=== PATIENT | male | born 1960 | race Caucasian/White ===

== ENCOUNTER 2023-07-07 03:03 | Emergency (ER) | payer OTHER, SELFPAY ==
[2023-07-07] VITALS (41 sets, daily range): BP systolic 108–184; BP diastolic 84–131; PULSE 0–121; RESP 0–39; O2SAT 95–100
--- NOTE | 2023-07-07 03:19 | CT_ITS ---
The [address] [address] Patient Name: SINA APONTE MRN: [id number] date: 1960 Sex: M Assigned Patient Location: ED.MAIN Current Patient Location: Accession/Order Number: [id number] Exam Date: 07/07/2023 05:00 Report Date: 07/07/2023 05:49 At the request of: SAIRA MARKER Procedure: CT head/brain wo con EXAM: CT head/brain wo con HISTORY: AMS COMPARISON: None. TECHNIQUE: Noncontrast axial CT images through the head were obtained with coronal and sagittal reformats. Dose reduction techniques were achieved by using automated exposure control and/or adjustment of mA and/or kV according to patient size and/or use of iterative reconstruction technique. FINDINGS: The cerebral sulci and ventricles are normal in size and shape. There is mild decreased attenuation within the periventricular white matter suggestive of chronic microvascular ischemic changes. There is no evidence of intracranial hemorrhage, mass, or midline shift. No extra-axial fluid collection is seen. The brainstem and cerebellum are normal in appearance. There is mucosal thickening and frothy secretions in the right maxillary sinus. Otherwise, the visualized paranasal sinuses and mastoid air cells are clear. No skull abnormalities are identified. CT/CT head/brain wo con IMPRESSION: 1. No acute intracranial abnormality. 2. Right maxillary sinus disease. Please correlate for acute sinusitis. Electronically authenticated by: Ru HOLBROOK Date: 07/07/2023 05:49
[2023-07-07 03:29] LABS: PO2 ABG 90.1 mmHg (80.0-100.0)
[2023-07-07 03:30] LABS: Allen Test POSITIVE (POSITIVE); Base Excess ABG -10.1 mmol/L (-2.0-2.0); Fractionated Inspired Oxygen 100 %; HCO3 ABG 20.9 mmol/L (22.0-26.0); O2 Mode VENTILATOR; Oxygen Saturation ABG 92.3 %; Puncture Site LR; Vent Mode AC
[2023-07-07 03:31] LABS: Rate 18; Tidal Volume 500
[2023-07-07 03:32] LABS: pH ABG 7.016 (7.350-7.450)
[2023-07-07 03:33] LABS: ABG PCO2 81.5 mmHg (35.0-45.0)
[2023-07-07 03:50] LABS: Alanine Aminotransferase 381 U/L (16-63); Albumin Level 2.1 g/dL (3.4-5.0); Alkaline Phosphatase 70 U/L (46-116); Anion Gap 12.2; Aspartate Amino Transferase 368 U/L (15-37); BUN Creatinine Ratio 9.8; Bilirubin Total 0.1 mg/dL (0.2-1.0); Calcium 7.6 mg/dL (8.5-10.1); Carbon Dioxide 26.5 mmol/L (21.0-32.0); Chloride 112 mmol/L (98-107); Estimated GFR (African America 56 (>=60); Estimated GFR (Non-African Ame 46 (>=60); Globulin 2.2 g/dL; Glucose 366 mg/dL (74-106); Potassium 3.7 mmol/L (3.5-5.1); Sodium 147 mmol/L (136-145); Total Protein 4.3 g/dL (6.4-8.2)
[2023-07-07] MEDS: IPRATROPIUM/ALBUTEROL SULFATE 3 ML AMPUL.NEB IH (03:50)
[2023-07-07 03:52] LABS: Troponin I High Sensitivity 66.5 pg/mL (4.0-76.1)
[2023-07-07 03:53] LABS: Hemoglobin 14.5 g/dL (14.0-18.0); Mean Corpuscular HGB Conc 30.9 g/dL (29.9-35.2); Mean Corpuscular Hemoglobin 30.8 pg (25.9-34.0); Mean Corpuscular Volume 99.8 fL (80.0-94.0); Mean Platelet Volume 10.8 fL (9.5-13.5); Platelet Count 117 10^3/uL (150-450); Red Blood Count 4.71 10^6/uL (4.70-6.10); Red Cell Distribution Width 12.9 % (11.0-15.0); White Blood Count 7.2 10^3/uL (4.0-11.0)
[2023-07-07] MEDS: AMIODARONE IN DEXTROSE,ISO-OSM 360 MG/200 ML PLAST..BAG 33.333 MG IV (04:02)
[2023-07-07] MEDS: NOREPINEPHRINE BITARTRATE 4 MG in DEXTROSE 5 % IN WATER 250 ML 15.24 MG IV (04:02)
--- NOTE | 2023-07-07 04:30 | ED_ITS ---
HPI - General Adult General Chief complaint: Cardiac Arrest/CPR Stated complaint: UNRESPONSIVE Time Seen by Provider: 07/07/23 03:18 Source: EMR Mode of arrival: ambulance Limitations: physical limitation Limitations comment: Patient unresponsive History of Present Illness HPI narrative: This 62-year-old male with a history of diabetes and tobacco use is brought to the emergency department by EMS upon notification for a full arrest. The patient was at work on the line at [employer] when he became unresponsive. CPR was initiated at [employer] and he had CPR and 3 shocks delivered by an AED prior to EMS arrival. Upon EMS arrival the patient was intubated but still had agonal respirations. He was given IV epinephrine ?4, amoidarone, sodium bicarb and was defibrillated 3 times. Despite their efforts cording to EMS he remained in ventricular tachycardia or ventricular fibrillation. An intraosseous line had been established by EMS. The downtime was over an hour before arriving to the E D. Arrival he was intubated and unresponsive without a pulse. CPR was in progress. His rhythm on the monitor showed ventricular tachycardia or ventricular fibrillation and he was shocked twice and given additional IV epinephrine and IV sodium bicarbonate. He was also given IV magnesium, IV calcium, IV fluids and started on an amiodarone and levofed drip. He maintained his pulse on these medications for over an hour. EKG done once a pulse was established is a wide complex at 102 bpm. An OGT was placed by the nursing staff and a large amount of dark blood was suctioned from his stomach, Additional history was obtained from the patient's domestic partner who states that he smokes 1.5-2 packs of cigarettes/day. He does not take aspirin or NSAIDS and he does not drink alcohol. He is a former drinker but has not been drinking for the past 15 years. Related Data Allergies Allergy/AdvReac Type Severity Reaction Status Date / Time No Known Drug Allergies Allergy Verified 07/07/23 03:28 Review of Systems ROS Status of ROS unobtainable due to medical condition Exam Narrative Exam Narrative: General: Thin, unresponsive adult male, intubated, CPR in progress Skin: Warm, dry, no pallor noted. There is no rash noted. Head: Normocephalic, atraumatic Eye:Pupils are 3-4 mm and eyes are deviated to the right, no corneal reflex appreciated Ears, Nose, Mouth, and Throat: ETT in oral cavity Cardiovascular: Initially pulseless with rhythm of V tach/V Fib and PEA. Once pulse established, it was brisk Respiratory: Patient is breathing above the vent. Lungs have coarse breath sounds and expiratory wheezing Back: non-tender, no CVA tenderness bilaterally to percussion. GI: Normal bowel sounds, no tenderness to palpation, no masses appreciated. No rebound, guarding, or rigidity noted. Musculoskeletal: The patient has no evidence of calf tenderness, no pitting edema, symmetrical pulses noted bilaterally Neurological: Unresponsive GCS 3T Constitutional Vital Signs, click to edit/add: Last Vital Signs Pulse 118 H 07/07/23 06:30 Resp 35 H 07/07/23 06:30 BP 166/106 H 07/07/23 05:29 Pulse Ox 95 07/07/23 06:30 O2 Del Method Ambu Bag 07/07/23 05:49 O2 Flow Rate 15 07/07/23 05:49 FiO2 100 07/07/23 05:39 Course Vital Signs Vital signs: Vital Signs Pulse Rate 85 07/07/23 03:36 Blood Pressure 112/84 07/07/23 03:36 Pulse Rate 118 H 07/07/23 06:30 Respiratory Rate 35 H 07/07/23 06:30 Blood Pressure 166/106 H 07/07/23 05:29 Pulse Oximetry 95 07/07/23 06:30 Oxygen Delivery Method Ambu Bag 07/07/23 05:49 Oxygen Delivery Flow Rate 15 07/07/23 05:49 Fraction of Inspired Oxygen 100 07/07/23 05:39 Medical Decision Making [facility] Narrative Medical decision making narrative: 62-year-old diabetic, smoker is brought to the emergency department from work. He was at work and suffered a witnessed cardiac arrest. His girlfriend states he has not been sick recently but has been coughing more than normal. He has not been complaining of any chest pain and does not have a personal history of cardiac disease. He was defibrillated 3 times at work and when EMS arrived he was defibrillated another 3 times and given multiple rounds of IV epinephrine, amiodarone, sodium bicarbonate and fluids. He was intubated on the scene. Upon arrival he was in ventricular tachycardia and/or ventricular fibrillation and was shocked twice, given additional IV epinephrine,IV lidocaine, an amiodarone drip was started, he was given 4 g of IV magnesium sulfate, 1 g of calcium gluconate. He was given an inline Duoneb treatment. He regained his pulse and maintained it on IV amiodarone and IV levophed. An OGT was placed and a large amount of dark blood was suctioned from his stomach. He was then given 40mg IV protonix. His pulse was maintained long enough for him to go to CT scan. Labs are reviewed; he has a respiratory acidosis with pH of 7.016 and elevated CO2 of 81. He has a normal WBC count and hemoglobin is 14.5. Glucose is elevated at 366. AST and ALT are elvated in the 300s. Creatinine is mildly elevated at 1.53. Initial troponin is normal at 66. Repeat ABG shows imorovement with pH of 7.139 with CO2 of 61.5. After CT scan, his blood pressure was elevated and the levophed was discontinued. The arrythmias were no longer present and he was taken off of the amiodarone drip. Repeat EKG is an organized rhythm at 106 bpm with a normal axis; UT interval of 152 ms, QRS duration of 102 ms, QT of 302/364 ms and non-specific EKG changes but does not show signs of a STEMI CT brain was ready by radiology and is negative for acute findings. CXR shows ETT above kemi and OGT tip above the stomach and the tube was advanced. The case was discussed with Dr Davis at [facility] and he is accepted for transfer pending the results of the CTA of the chest/abdomen and pelvis CT angio of the chest showed hemorrhagic fat stranding in the anterior mediastinum, posterior to the sternum, and most likely venous as well as bilateral lower lobe infiltrates that could represent aspiration at the time of his arrest. The radiologist felt that this could be from the CPR/Garrett device that was delivering his CPR. Medical Records Medical records narrative: The [address] [address] [address] Scan Report Signed Patient: SINA APONTE Jr. MR#: [id number] : 1960 Acct:[id number] Age/Sex: 62 / M ADM Date: 07/07/23 Loc: ER Attending Dr: Ordering Physician: Danna Gloria Date of Service: 07/07/23 Procedure(s): CT head/brain wo con Accession Number(s): [id number] cc: Physician,Non-Staff MVicky~ The [address] [address] Patient Name: SINA APONTE MRN: [id number] date: 1960 Sex: M Assigned Patient Location: ED.MAIN Current Patient Location: ER Accession/Order Number: [id number] Exam Date: 07/07/2023 05:00 Report Date: 07/07/2023 05:49 At the request of: DANNA GLORIA Procedure: CT head/brain wo con EXAM: CT head/brain wo con HISTORY: AMS COMPARISON: None. TECHNIQUE: Noncontrast axial CT images through the head were obtained with coronal and sagittal reformats. Dose reduction techniques were achieved by using automated exposure control and/or adjustment of mA and/or kV according to patient size and/or use of iterative reconstruction technique. FINDINGS: The cerebral sulci and ventricles are normal in size and shape. There is mild decreased attenuation within the periventricular white matter suggestive of chronic microvascular ischemic changes. There is no evidence of intracranial hemorrhage, mass, or midline shift. No extra-axial fluid collection is seen. The brainstem and cerebellum are normal in appearance. There is mucosal thickening and frothy secretions in the right maxillary sinus. Otherwise, the visualized paranasal sinuses and mastoid air cells are clear. No skull abnormalities are identified. CT/CT head/brain wo con IMPRESSION: 1. No acute intracranial abnormality. 2. Right maxillary sinus disease. Please correlate for acute sinusitis. Electronically authenticated by: Ru HOLBROOK Date: 07/07/2023 05:49 The [place] [id number] XRay Report Signed Patient: SINA APONTE Jr. MR#: [id number] : 1960 Acct:[id number] Age/Sex: 62 / M ADM Date: 07/07/23 Loc: ER Attending Dr: Ordering Physician: Danna Gloria Date of Service: 07/07/23 Procedure(s): XR chest 1V Accession Number(s): [id number] cc: Danna Gloria; Physician,Non-Staff Clemencia~ The [address] [address] Patient Name: SINA APONTE MRN: [id number] date: 1960 Sex: M Assigned Patient Location: ED.MAIN Current Patient Location: ER Accession/Order Number: [id number] Exam Date: 07/07/2023 05:00 Report Date: 07/07/2023 05:48 At the request of: DANNA MARKER Procedure: XR chest 1V EXAM: XR chest 1V HISTORY: cardiac arrest COMPARISON: Chest x-ray 02/25/2012 TECHNIQUE: Single frontal view chest x-ray FINDINGS: Endotracheal tube distal tip terminates 2.0 cm above the kemi. Enteric tube distal tip is at the gastric cardia and sidehole is at the lower esophagus, above the gastric body by 7 cm. Skinfolds overlying the bilateral upper thoraces. Mild bilateral infrahilar lower lung streaky opacities. No large pleural effusion, pneumothorax, or acute bony abnormality. Cardiac size is unremarkable. XR/XR chest 1V IMPRESSION: Endotracheal tube distal tip terminates 2.0 cm above the kemi. Enteric tube distal tip is at the gastric cardia and enteric sidehole is at the lower esophagus, above the gastric body by 7 cm. Mild bilateral infrahilar lower lung streaky opacities reflect atelectasis or lung infiltrates. Electronically authenticated by: JACOB SETHI Date: 07/07/2023 05:48 [place] [address] CT Scan Report Signed Patient: SINA APONTE Jr. MR#: [id number] : 1960 Acct:[id number] Age/Sex: 62 / M ADM Date: 07/07/23 Loc: ER Attending Dr: Ordering Physician: Danna Gloria Date of Service: 07/07/23 Procedure(s): CT angio abdomen pelvis Accession Number(s): [id number] cc: Physician,Non-Staff Clemencia~ The [place] [address] Patient Name: SINA APONTE MRN: [id number] date: 1960 Sex: M Assigned Patient Location: ER Current Patient Location: ER Accession/Order Number: [id number] Exam Date: 07/07/2023 05:00 Report Date: 07/07/2023 06:48 At the request of: DANNA MARKER Procedure: CT angio abdomen pelvis EXAM: CT angio chest, CT angio abdomen pelvis HISTORY: UNresponsive GI bleed . Patient collapsed at work and became unresponsive. COMPARISON: None. TECHNIQUE: IV contrast enhanced CTA imaging of the chest, abdomen and pelvis was performed using 100 mL of Visipaque to 70 intravenous contrast. 3-D reconstructions of the aorta provided. Dose reduction techniques were achieved by using automated exposure control and/or adjustment of mA and/or kV according to patient size and/or use of iterative reconstruction technique. FINDINGS: CTA CHEST: Moderate atherosclerotic calcifications are noted. The thoracic aorta and arch vessels are otherwise unremarkable. There is no dissection or aneurysm. Cardiac size is normal. There is severe triple-vessel coronary arterial calcifications. There is no pericardial effusion. There is moderately limited enhancement of the pulmonary arteries. No central pulmonary embolism is seen. There is nonspecific hemorrhagic fat stranding in the anterior mediastinum containing several tiny foci of hyperdensity in the substernal region suspicious for potential mild active bleeding, measuring up to 5 mm along the lateral margin of the right posterior sternum on image 50 of series 5. This may be due to resuscitative efforts. An endotracheal tube and NG tube are in good position. Diffuse respiratory motion artifact degrades the lungs. There is consolidation in the posterior lower lobes which could reflect atelectasis, aspiration or pneumonia, left mildly greater than right. There is milder dependent atelectasis in the posterior upper lobes. No pleural effusion or pneumothorax is seen. Diffuse motion artifact and the patient being imaged on the ventilator limits sensitivity for detecting potential osseous injury. However, acute bilateral anterior second rib fractures are suspected. Multiple additional osseous discontinuities favors stairstep artifact related to motion artifact. CTA ABDOMEN: Prominent motion artifact degrades the abdomen. Severe atherosclerotic calcifications are seen in the abdominal aorta, without dissection or aneurysm. The celiac axis, superior mesenteric artery, bilateral renal arteries and inferior mesenteric artery are well enhanced. There is severe stenosis at the origin of the right renal artery and SMA with moderate proximal left renal artery stenosis. There is nonspecific diffuse gallbladder wall thickening. There is no biliary ductal dilatation. The liver, pancreas, spleen, adrenal glands and kidneys appear grossly unremarkable allowing for motion artifact. The nonenhanced stomach and small bowel appear within normal limits. CTA PELVIS: The pelvic arterial circulation is well enhanced with no acute vascular abnormality. Atherosclerotic calcifications are present with multifocal arterial stenoses. No active gastrointestinal bleeding or other potential hemorrhage is identified in the abdomen or pelvis. A Burk catheter is in good position in the urinary bladder with mild air related to catheter placement. The bladder is decompressed with diffuse bladder wall thickening. The prostate is mildly enlarged. The pelvic small bowel loops are unremarkable. There is mild colonic diverticulosis. The colon is otherwise unremarkable. There is fluid versus undescended testicles and both inguinal rings. Mild simple density free fluid is seen in the dependent posterior lower pelvis, measuring 15 Hounsfield units on image 179. No loculated fluid or free air is seen. No acute osseous abnormality or suspicious bony lesion is seen. CT/CT angio abdomen pelvis IMPRESSION: 1. Nonspecific anterior mediastinal hemorrhagic fat stranding containing several tiny foci of hyperdensity, which could reflect mild active bleeding in the substernal region, etiology indeterminate. This may be due to to resuscitative efforts during CPR is unresponsive patient. These are well from the thoracic aorta and arch vessels, which showed no acute diagnostic abnormality. Short interval follow-up imaging is recommended to assess stability. 2. Nonspecific consolidation in both posterior lower lobes could reflect atelectasis, aspiration or pneumonia, left greater than right. 3. Diffuse motion artifact due to the patient being imaged on the ventilator. Acute bilateral anterior second rib fractures are suspected, though these may be due to motion artifact. 4. Nonspecific diffuse gallbladder wall thickening. Potential cholecystitis could be further evaluated with right upper quadrant ultrasound. 5. Small volume simple density free fluid in the dependent posterior lower pelvis, etiology indeterminate. No other acute findings in the abdomen or pelvis. Specifically, no active gastrointestinal, peritoneal or retroperitoneal bleeding is seen. Lab Data Labs: Lab Results 07/07/23 07/07/23 07/07/23 Range/Units 03:18 03:25 05:33 WBC 7.2 (4.0-11.0) 10^3/uL RBC 4.71 (4.70-6.10) 10^6/uL Hgb 14.5 (14.0-18.0) g/dL Hct 47.0 (42.0-54.0) % MCV 99.8 H (80.0-94.0) fL MCH 30.8 (25.9-34.0) pg MCHC 30.9 (29.9-35.2) g/dL RDW 12.9 (11.0-15.0) % Plt Count 117 L (150-450) 10^3/uL MPV 10.8 (9.5-13.5) fL Seg Neuts % (Manual) 16.0 Band Neutrophils % 4.0 (0-5) % Lymphocytes % (Manual) 63.0 H (20.5-60.0) % Monocytes % (Manual) 3.0 (1.7-12.0) % Eosinophils % (Manual) 4.0 (0.9-7.0) % Basophils % (Manual) 0.0 L (0.2-2.0) % Metamyelocytes % 6.0 Myelocytes % 5.0 Neutrophils # (Manual) 1.15 L (1.4-6.5) 10^3/uL Band Neutrophils # 0.3 (0.0-0.3) 10^3/uL Lymphocytes # (Manual) 4.53 H (1.20-3.80) 10^3/uL Monocytes # (Manual) 0.21 L (0.30-0.80) 10^3/uL Eosinophils # (Manual) 0.28 (0.00-0.70) 10^3/uL Basophils # (Manual) 0.00 (0.00-0.10) 10^3/uL Metamyelocytes # 0.43 Myelocytes # 0.36 Puncture Site Lr Lr ABG pH 7.016 L* 7.139 L* (7.350-7.450) ABG pCO2 81.5 H* 61.5 H* (35.0-45.0) mmHg ABG pO2 90.1 146.0 H (80.0-100.0) mmHg ABG HCO3 20.9 L 20.8 L (22.0-26.0) mmol/L ABG O2 Saturation 92.3 98.7 % ABG Base Excess -10.1 L -8.2 L (-2.0-2.0) mmol/L Fredy Test Positive Positive (POSITIVE) Minute Volume Vent Mode Ac Ac FiO2 100 100 % Tidal Volume 500 500 Pressure Support Sodium 147 H (136-145) mmol/L Potassium 3.7 (3.5-5.1) mmol/L Chloride 112 H (98-107) mmol/L Carbon Dioxide 26.5 (21.0-32.0) mmol/L Anion Gap 12.2 BUN 15.0 (7.0-18.0) mg/dL Creatinine 1.53 H (0.70-1.30) mg/dL Est GFR ( Amer) 56 L (>=60) Est GFR (Non-Af Amer) 46 L (>=60) BUN/Creatinine Ratio 9.8 Glucose 366 H (74-106) mg/dL Lactate (0.4-2.0) mmol/L Calcium 7.6 L (8.5-10.1) mg/dL Total Bilirubin 0.1 L (0.2-1.0) mg/dL AST 368 H (15-37) U/L ALT 381 H (16-63) U/L Alkaline Phosphatase 70 (46-116) U/L Troponin I High Sens 66.5 (4.0-76.1) pg/mL Total Protein 4.3 L (6.4-8.2) g/dL Albumin 2.1 L (3.4-5.0) g/dL Globulin 2.2 g/dL Albumin/Globulin Ratio 1.0 / Range/Units 05:49 WBC (4.0-11.0) 10^3/uL RBC (4.70-6.10) 10^6/uL Hgb (14.0-18.0) g/dL Hct (42.0-54.0) % MCV (80.0-94.0) fL MCH (25.9-34.0) pg MCHC (29.9-35.2) g/dL RDW (11.0-15.0) % Plt Count (150-450) 10^3/uL MPV (9.5-13.5) fL Seg Neuts % (Manual) Band Neutrophils % (0-5) % Lymphocytes % (Manual) (20.5-60.0) % Monocytes % (Manual) (1.7-12.0) % Eosinophils % (Manual) (0.9-7.0) % Basophils % (Manual) (0.2-2.0) % Metamyelocytes % Myelocytes % Neutrophils # (Manual) (1.4-6.5) 10^3/uL Band Neutrophils # (0.0-0.3) 10^3/uL Lymphocytes # (Manual) (1.20-3.80) 10^3/uL Monocytes # (Manual) (0.30-0.80) 10^3/uL Eosinophils # (Manual) (0.00-0.70) 10^3/uL Basophils # (Manual) (0.00-0.10) 10^3/uL Metamyelocytes # Myelocytes # Puncture Site ABG pH (7.350-7.450) ABG pCO2 (35.0-45.0) mmHg ABG pO2 (80.0-100.0) mmHg ABG HCO3 (22.0-26.0) mmol/L ABG O2 Saturation % ABG Base Excess (-2.0-2.0) mmol/L Fredy Test (POSITIVE) Minute Volume Vent Mode FiO2 % Tidal Volume Pressure Support Sodium (136-145) mmol/L Potassium (3.5-5.1) mmol/L Chloride (98-107) mmol/L Carbon Dioxide (21.0-32.0) mmol/L Anion Gap BUN (7.0-18.0) mg/dL Creatinine (0.70-1.30) mg/dL Est GFR ( Amer) (>=60) Est GFR (Non-Af Amer) (>=60) BUN/Creatinine Ratio Glucose (74-106) mg/dL Lactate 6.0 H* (0.4-2.0) mmol/L Calcium (8.5-10.1) mg/dL Total Bilirubin (0.2-1.0) mg/dL AST (15-37) U/L ALT (16-63) U/L Alkaline Phosphatase (46-116) U/L Troponin I High Sens (4.0-76.1) pg/mL Total Protein (6.4-8.2) g/dL Albumin (3.4-5.0) g/dL Globulin g/dL Albumin/Globulin Ratio ECG Data Attestation: I personally reviewed and interpreted this ECG as follows: (Postarrest rhythm, wide complex QRS at 100 bpm) Critical Care Time Critical Care Time Critical Care Time: Yes Total Critical Care Time: 75 Attestation: . Discharge Plan Discharge Chief Complaint: Cardiac Arrest/CPR Clinical Impression: Acute respiratory failure, Cardiac arrest Patient Disposition: [facility] Time of Disposition Decision: 06:59 Discharge Location: [facility] Mode of Transportation: EMS Referrals: Physician,Non-Staff, MD [Primary Care Provider] - 1 week Procedures ED Procedure Instructions Procedures Procedures: Procedure Note: Peripheral line IV placement; done by myself due to urgency and difficult access; 18 g angiocath was placed in the left External jugular vein and 20 g angiocath was placed in the right forearm by myself.
[2023-07-07] MEDS: PANTOPRAZOLE SODIUM 40 MG VIAL IV (04:32)
[2023-07-07 04:42] LABS: Band Neutrophils Absolute 0.3 10^3/uL (0.0-0.3); Eosinophils Absolute Manual 0.28 10^3/uL (0.00-0.70); Lymphocytes Absolute Manual 4.53 10^3/uL (1.20-3.80); Metamyelocytes Absolute Manual 0.43; Monocytes Absolute Manual 0.21 10^3/uL (0.30-0.80); Myelocytes Absolute Manual 0.36; Segmented Neut Absolute Manual 1.15 10^3/uL (1.4-6.5)
[2023-07-07] MEDS: PROPOFOL 1,000 MG/100 ML VIAL 1.95 MG IV (04:55)
--- NOTE | 2023-07-07 05:00 | XR_ITS ---
The [address] [address] Patient Name: SINA APONTE MRN: [id number] date: 1960 Sex: M Assigned Patient Location: ED.MAIN Current Patient Location: ER Accession/Order Number: [id number] Exam Date: 07/07/2023 05:00 Report Date: 07/07/2023 05:48 At the request of: SAIRA MARKER Procedure: XR chest 1V EXAM: XR chest 1V HISTORY: cardiac arrest COMPARISON: Chest x-ray 02/25/2012 TECHNIQUE: Single frontal view chest x-ray FINDINGS: Endotracheal tube distal tip terminates 2.0 cm above the kemi. Enteric tube distal tip is at the gastric cardia and sidehole is at the lower esophagus, above the gastric body by 7 cm. Skinfolds overlying the bilateral upper thoraces. Mild bilateral infrahilar lower lung streaky opacities. No large pleural effusion, pneumothorax, or acute bony abnormality. Cardiac size is unremarkable. XR/XR chest 1V IMPRESSION: Endotracheal tube distal tip terminates 2.0 cm above the kemi. Enteric tube distal tip is at the gastric cardia and enteric sidehole is at the lower esophagus, above the gastric body by 7 cm. Mild bilateral infrahilar lower lung streaky opacities reflect atelectasis or lung infiltrates. Electronically authenticated by: JACOB SETHI Date: 07/07/2023 05:48
--- NOTE | 2023-07-07 05:00 | CT_ITS ---
[address] [address] Patient Name: SINA APONTE MRN: [id number] date: 1960 Sex: M Assigned Patient Location: ER Current Patient Location: Accession/Order Number: [id number] Exam Date: 07/07/2023 05:00 Report Date: 07/07/2023 06:48 At the request of: DANNA MARKER Procedure: CT angio abdomen pelvis EXAM: CT angio chest, CT angio abdomen pelvis HISTORY: UNresponsive GI bleed . Patient collapsed at work and became unresponsive. COMPARISON: None. TECHNIQUE: IV contrast enhanced CTA imaging of the chest, abdomen and pelvis was performed using 100 mL of Visipaque to 70 intravenous contrast. 3-D reconstructions of the aorta provided. Dose reduction techniques were achieved by using automated exposure control and/or adjustment of mA and/or kV according to patient size and/or use of iterative reconstruction technique. FINDINGS: CTA CHEST: Moderate atherosclerotic calcifications are noted. The thoracic aorta and arch vessels are otherwise unremarkable. There is no dissection or aneurysm. Cardiac size is normal. There is severe triple-vessel coronary arterial calcifications. There is no pericardial effusion. There is moderately limited enhancement of the pulmonary arteries. No central pulmonary embolism is seen. There is nonspecific hemorrhagic fat stranding in the anterior mediastinum containing several tiny foci of hyperdensity in the substernal region suspicious for potential mild active bleeding, measuring up to 5 mm along the lateral margin of the right posterior sternum on image 50 of series 5. This may be due to resuscitative efforts. An endotracheal tube and NG tube are in good position. Diffuse respiratory motion artifact degrades the lungs. There is consolidation in the posterior lower lobes which could reflect atelectasis, aspiration or pneumonia, left mildly greater than right. There is milder dependent atelectasis in the posterior upper lobes. No pleural effusion or pneumothorax is seen. Diffuse motion artifact and the patient being imaged on the ventilator limits sensitivity for detecting potential osseous injury. However, acute bilateral anterior second rib fractures are suspected. Multiple additional osseous discontinuities favors stairstep artifact related to motion artifact. CTA ABDOMEN: Prominent motion artifact degrades the abdomen. Severe atherosclerotic calcifications are seen in the abdominal aorta, without dissection or aneurysm. The celiac axis, superior mesenteric artery, bilateral renal arteries and inferior mesenteric artery are well enhanced. There is severe stenosis at the origin of the right renal artery and SMA with moderate proximal left renal artery stenosis. There is nonspecific diffuse gallbladder wall thickening. There is no biliary ductal dilatation. The liver, pancreas, spleen, adrenal glands and kidneys appear grossly unremarkable allowing for motion artifact. The nonenhanced stomach and small bowel appear within normal limits. CTA PELVIS: The pelvic arterial circulation is well enhanced with no acute vascular abnormality. Atherosclerotic calcifications are present with multifocal arterial stenoses. No active gastrointestinal bleeding or other potential hemorrhage is identified in the abdomen or pelvis. A Burk catheter is in good position in the urinary bladder with mild air related to catheter placement. The bladder is decompressed with diffuse bladder wall thickening. The prostate is mildly enlarged. The pelvic small bowel loops are unremarkable. There is mild colonic diverticulosis. The colon is otherwise unremarkable. There is fluid versus undescended testicles and both inguinal rings. Mild simple density free fluid is seen in the dependent posterior lower pelvis, measuring 15 Hounsfield units on image 179. No loculated fluid or free air is seen. No acute osseous abnormality or suspicious bony lesion is seen. CT/CT angio abdomen pelvis IMPRESSION: 1. Nonspecific anterior mediastinal hemorrhagic fat stranding containing several tiny foci of hyperdensity, which could reflect mild active bleeding in the substernal region, etiology indeterminate. This may be due to to resuscitative efforts during CPR is unresponsive patient. These are well from the thoracic aorta and arch vessels, which showed no acute diagnostic abnormality. Short interval follow-up imaging is recommended to assess stability. 2. Nonspecific consolidation in both posterior lower lobes could reflect atelectasis, aspiration or pneumonia, left greater than right. 3. Diffuse motion artifact due to the patient being imaged on the ventilator. Acute bilateral anterior second rib fractures are suspected, though these may be due to motion artifact. 4. Nonspecific diffuse gallbladder wall thickening. Potential cholecystitis could be further evaluated with right upper quadrant ultrasound. 5. Small volume simple density free fluid in the dependent posterior lower pelvis, etiology indeterminate. No other acute findings in the abdomen or pelvis. Specifically, no active gastrointestinal, peritoneal or retroperitoneal bleeding is seen. Critical results were called by Dr. Daniel Soliz to Dr. Danna Gloria At 07/07/2023 6:05 AM EST. Electronically authenticated by: DANIEL SOLIZ Date: 07/07/2023 06:48
--- NOTE | 2023-07-07 05:00 | CT_ITS ---
[address] [address] Patient Name: SINA APONTE MRN: [id number] date: 1960 Sex: M Assigned Patient Location: ED.MAIN Current Patient Location: Accession/Order Number: [id number] Exam Date: 07/07/2023 05:00 Report Date: 07/07/2023 06:48 At the request of: DANNA MARKER Procedure: CT angio chest EXAM: CT angio chest, CT angio abdomen pelvis HISTORY: UNresponsive GI bleed . Patient collapsed at work and became unresponsive. COMPARISON: None. TECHNIQUE: IV contrast enhanced CTA imaging of the chest, abdomen and pelvis was performed using 100 mL of Visipaque to 70 intravenous contrast. 3-D reconstructions of the aorta provided. Dose reduction techniques were achieved by using automated exposure control and/or adjustment of mA and/or kV according to patient size and/or use of iterative reconstruction technique. FINDINGS: CTA CHEST: Moderate atherosclerotic calcifications are noted. The thoracic aorta and arch vessels are otherwise unremarkable. There is no dissection or aneurysm. Cardiac size is normal. There is severe triple-vessel coronary arterial calcifications. There is no pericardial effusion. There is moderately limited enhancement of the pulmonary arteries. No central pulmonary embolism is seen. There is nonspecific hemorrhagic fat stranding in the anterior mediastinum containing several tiny foci of hyperdensity in the substernal region suspicious for potential mild active bleeding, measuring up to 5 mm along the lateral margin of the right posterior sternum on image 50 of series 5. This may be due to resuscitative efforts. An endotracheal tube and NG tube are in good position. Diffuse respiratory motion artifact degrades the lungs. There is consolidation in the posterior lower lobes which could reflect atelectasis, aspiration or pneumonia, left mildly greater than right. There is milder dependent atelectasis in the posterior upper lobes. No pleural effusion or pneumothorax is seen. Diffuse motion artifact and the patient being imaged on the ventilator limits sensitivity for detecting potential osseous injury. However, acute bilateral anterior second rib fractures are suspected. Multiple additional osseous discontinuities favors stairstep artifact related to motion artifact. CTA ABDOMEN: Prominent motion artifact degrades the abdomen. Severe atherosclerotic calcifications are seen in the abdominal aorta, without dissection or aneurysm. The celiac axis, superior mesenteric artery, bilateral renal arteries and inferior mesenteric artery are well enhanced. There is severe stenosis at the origin of the right renal artery and SMA with moderate proximal left renal artery stenosis. There is nonspecific diffuse gallbladder wall thickening. There is no biliary ductal dilatation. The liver, pancreas, spleen, adrenal glands and kidneys appear grossly unremarkable allowing for motion artifact. The nonenhanced stomach and small bowel appear within normal limits. CTA PELVIS: The pelvic arterial circulation is well enhanced with no acute vascular abnormality. Atherosclerotic calcifications are present with multifocal arterial stenoses. No active gastrointestinal bleeding or other potential hemorrhage is identified in the abdomen or pelvis. A Burk catheter is in good position in the urinary bladder with mild air related to catheter placement. The bladder is decompressed with diffuse bladder wall thickening. The prostate is mildly enlarged. The pelvic small bowel loops are unremarkable. There is mild colonic diverticulosis. The colon is otherwise unremarkable. There is fluid versus undescended testicles and both inguinal rings. Mild simple density free fluid is seen in the dependent posterior lower pelvis, measuring 15 Hounsfield units on image 179. No loculated fluid or free air is seen. No acute osseous abnormality or suspicious bony lesion is seen. CT/CT angio chest IMPRESSION: 1. Nonspecific anterior mediastinal hemorrhagic fat stranding containing several tiny foci of hyperdensity, which could reflect mild active bleeding in the substernal region, etiology indeterminate. This may be due to to resuscitative efforts during CPR is unresponsive patient. These are well from the thoracic aorta and arch vessels, which showed no acute diagnostic abnormality. Short interval follow-up imaging is recommended to assess stability. 2. Nonspecific consolidation in both posterior lower lobes could reflect atelectasis, aspiration or pneumonia, left greater than right. 3. Diffuse motion artifact due to the patient being imaged on the ventilator. Acute bilateral anterior second rib fractures are suspected, though these may be due to motion artifact. 4. Nonspecific diffuse gallbladder wall thickening. Potential cholecystitis could be further evaluated with right upper quadrant ultrasound. 5. Small volume simple density free fluid in the dependent posterior lower pelvis, etiology indeterminate. No other acute findings in the abdomen or pelvis. Specifically, no active gastrointestinal, peritoneal or retroperitoneal bleeding is seen. Critical results were called by Dr. Daniel Soliz to Dr. Danna Gloria At 07/07/2023 6:05 AM EST. Electronically authenticated by: DANIEL SOLIZ Date: 07/07/2023 06:48
--- NOTE | 2023-07-07 05:23 | ECG_ITS ---
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
[2023-07-07 05:39] LABS: Allen Test POSITIVE (POSITIVE); Base Excess ABG -8.2 mmol/L (-2.0-2.0); Fractionated Inspired Oxygen 100 %; HCO3 ABG 20.8 mmol/L (22.0-26.0); O2 Mode VENTILATOR; Oxygen Saturation ABG 98.7 %; Puncture Site LR
--- NOTE | 2023-07-07 05:39 | RESP.RT ---
fio2 decreased to 80% on ventilator
[2023-07-07 05:40] LABS: Rate 18; Tidal Volume 500; Vent Mode AC
[2023-07-07 05:41] LABS: ABG PCO2 61.5 mmHg (35.0-45.0); pH ABG 7.139 (7.350-7.450)
[2023-07-07] MEDS: MAGNESIUM SULFATE IN WATER 4 GM/100 ML PIGGYBACK IV (05:41)
[2023-07-07] MEDS: SODIUM CHLORIDE 0.9% IV (05:45)
[2023-07-07] MEDS: CALCIUM GLUCONATE IV (05:45)
--- NOTE | 2023-07-07 05:54 | ECG_ITS ---
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
--- NOTE | 2023-07-07 05:54 | PC.NURSE ---
Pt arrived to ER in cardiac arrest Pt arrived to ER at 0300- squad report informed us pt had collapsed at 0205 Squad had intubated the pt (#7 ET Tube) placed an IO in the right tibia with IC fluids running on a pressure bag, delivered 3 shocks, 4 rounds of epi, an amp of bicarb and had the AutoPulse actively delivering compressions At 0302 pulse check showed pt in PEA 0304 1 round of epi and 1 round of bicarb given 0305 Pulse palpable but weak pt then went into v-fib and shock was delivered 030 Dr. Wright placed an EJ on the left side 18g 0308 another round of epi given 0310 ROSC 0311 biicarb round 2 0314 pulseless v-fib shock delivered 0315 pulse again present BP 114/81 0317 Pt placed on vent and monitor, lab draws obtained From here pt remained having a steady pulse and was stable on the vent See paper charting for whole code details See Code algorithm within this system for details after ROSC
[2023-07-07] MEDS: 0.9 % SODIUM CHLORIDE 1,000 ML 1000 ML IV ×2 (07:20→08:38)
[2023-07-07 07:23] LABS: Hematocrit 49.2 % (42.0-54.0); Hemoglobin 16.3 g/dL (14.0-18.0); Mean Corpuscular HGB Conc 33.1 g/dL (29.9-35.2); Mean Corpuscular Hemoglobin 31.3 pg (25.9-34.0); Mean Corpuscular Volume 94.6 fL (80.0-94.0); Mean Platelet Volume 10.3 fL (9.5-13.5); Platelet Count 227 10^3/uL (150-450)
--- NOTE | 2023-07-07 07:38 | XR_ITS ---
The [address] [address] Patient Name: SINA APONTE MRN: [id number] date: 1960 Sex: M Assigned Patient Location: ER Current Patient Location: ER Accession/Order Number: [id number] Exam Date: 07/07/2023 07:35 Report Date: 07/07/2023 08:00 At the request of: BEA MUNOZ Procedure: XR chest 1V EXAMINATION: XR chest 1V HISTORY: repeat, COMPARISON: 07/07/2023 at 4:33 AM TECHNIQUE: Portable supine FINDINGS: LUNGS: Endotracheal tube tip is 4.1 cm above the kemi. Minimal bibasilar infiltrates, left greater than right. VASCULATURE: No increased pulmonary vasculature. PLEURA: No pneumothorax, effusion, or pleural thickening. CARDIAC: No cardiomegaly or cardiac silhouette abnormality. MEDIASTINUM: No visible mass or adenopathy. BONES: No fracture or visible bone lesion. OTHER: Enteric tube extends off the field of view. XR/XR chest 1V IMPRESSION: Normal lines and tubes Minimal bibasilar infiltrates, left greater than right Electronically authenticated by: JOSE RAFAEL BENITEZ Date: 07/07/2023 08:00
[2023-07-07 07:43] LABS: White Blood Count 38.4 10^3/uL (4.0-11.0)
[2023-07-07 07:51] LABS: Band Neutrophils Absolute 8.1 10^3/uL (0.0-0.3); Lymphocytes Absolute Manual 2.68 10^3/uL (1.20-3.80); Metamyelocytes Absolute Manual 1.15; Monocytes Absolute Manual 1.92 10^3/uL (0.30-0.80); Segmented Neut Absolute Manual 24.57 10^3/uL (1.4-6.5)
[2023-07-07 07:56] LABS: Lactate/Lactic Acid 5.9 mmol/L (0.4-2.0)
[2023-07-07 08:04] LABS: Base Excess ABG -9.8 mmol/L (-2.0-2.0); HCO3 ABG 18.5 mmol/L (22.0-26.0); Oxygen Saturation ABG 99.2 %
[2023-07-07 08:06] LABS: Allen Test POSITIVE (POSITIVE); Fractionated Inspired Oxygen 80 %; Puncture Site LR
[2023-07-07 08:07] LABS: Rate 18; Tidal Volume 500; Vent Mode AC
[2023-07-07 08:08] LABS: O2 Mode VENT
[2023-07-07 08:12] LABS: pH ABG 7.185 (7.350-7.450)
--- NOTE | 2023-07-07 08:16 | RESP.RT ---
Xray taken retied ET tube @24cm, suctioned for moderate amount clr,bloody,yellow.ABG drawn waiting results , decreased fi02 to 60 %
[2023-07-07] MEDS: SODIUM BICARBONATE 150 MEQ in DEXTROSE 5 % IN WATER 1,000 ML 100 MEQ IV (08:35)
[2023-07-07] MEDS: CALCIUM GLUCONATE 1,000 MG/10 ML VIAL 1000 MG IVP (08:38)
[2023-07-07] MEDS: VANCOMYCIN HCL 1,000 MG in 0.9 % SODIUM CHLORIDE 500 ML 250 MG IV (08:50)
[2023-07-07 09:37] LABS: Lactate/Lactic Acid 5.5 mmol/L (0.4-2.0)
== END 2023-07-07 10:22 | disposition short-term general hospital (02) ==
PROVIDERS: Emergency Medicine; Emergency Provider Emergency Medicine
DX: I46.9 Cardiac arrest, cause unspecified (principal); J96.00 Acute respiratory failure, unspecified whether with hypoxia or hypercapnia; E87.4 Mixed disorder of acid-base balance; D72.829 Elevated white blood cell count, unspecified; E83.51 Hypocalcemia; R79.89 Other specified abnormal findings of blood chemistry; E87.20 Acidosis, unspecified; E11.9 Type 2 diabetes mellitus without complications; F17.210 Nicotine dependence, cigarettes, uncomplicated
CPT/HCPCS: 36415; 36600; 51702; 70450; 71045; 71275; 74174; 80053; 82805; 83605; 84484; 85027; 86850; 86900; 86901; 92950; 93005; 94002; 94640; 96365; 96366; 96368; 96375; 96376; 99291; 99292; J0171; J0283; J0612; J2704; J3370; J3475; Q9966